=== PATIENT | female | born 1975 | race Two or more races ===

== ENCOUNTER 2023-07-24 19:40 | Emergency (ER) | payer OTHER ==
[2023-07-24 19:45] VITALS: BP 110/66; PULSE 69; RESP 18; TEMP 98.5; BMI 31.4
[2023-07-24 20:19] LABS: EPI CELLS 26 /uL (0-25.1); HYALINE CASTS 0 /uL (0-3.1); URINE APPEARANCE CLEAR; URINE BILIRUBIN 1+ (NEGATIVE); URINE COLOR RED; URINE GLUCOSE (UA) NEGATIVE (NEGATIVE); URINE KETONE Error (NEGATIVE); URINE LEUK ESTERASE 2+ (NEGATIVE); URINE NITRITE POSITIVE (NEGATIVE); URINE PROTEIN TRACE (NEGATIVE); URINE RBC 20 /uL (0-23.9); URINE WBC 3 /uL (0-25.8)
[2023-07-24] MEDS ORDERED: CEPHALEXIN MONOHYDRATE 500 MG CAPSULE (UD) ONE (21:06)
[2023-07-24] MEDS ORDERED: IBUPROFEN 600 MG TABLET (FP) PO ONE (21:06)
[2023-07-24] MEDS: CEPHALEXIN MONOHYDRATE 500 MG CAPSULE (UD) PO ONE (21:08)
[2023-07-24] MEDS: IBUPROFEN 600 MG TABLET (FP) PO ONE (21:08)
== END 2023-07-24 21:13 | disposition home or self-care (01) ==
LOC: JERFT 19:40
DX: R10.30 Lower abdominal pain, unspecified (principal); R35.0 Frequency of micturition; R39.15 Urgency of urination; N39.0 Urinary tract infection, site not specified
CPT/HCPCS: 81003; 87086; 99283-25

== ENCOUNTER 2024-04-02 19:52 | Emergency (ER) | payer OTHER ==
[2024-04-02 20:00] VITALS: BP 127/78; PULSE 66; RESP 20; TEMP 98.4; BMI 26.4
[2024-04-02] MEDS ORDERED: ACETAMINOPHEN 325 MG TABLET (FP) ONE (20:50)
[2024-04-02] MEDS ORDERED: ONDANSETRON *ODT* 4 MG TABLET ONE (20:51)
[2024-04-02] MEDS: ACETAMINOPHEN 500 MG TABLET (FP) PO ONE (20:56)
[2024-04-02] MEDS: ONDANSETRON *ODT* 4 MG TABLET SL ONE (20:56)
== END 2024-04-02 21:26 | disposition home or self-care (01) ==
LOC: JER 19:52
DX: R05.9 Cough, unspecified (principal); R09.81 Nasal congestion; R11.0 Nausea; Z20.822 Contact with and (suspected) exposure to COVID-19
CPT/HCPCS: 0241U-QW; 93005; 93010; 99284-25; Q0162